=== PATIENT | female | born 1990 | race Caucasian/White ===

== ENCOUNTER 2018-07-16 08:52 | Emergency (ER) | payer MEDICAID ==
[~2018-07-16] VITALS: Ht 167.6 cm; Wt 50.0 kg
[2018-07-16] MEDS ORDERED: NAPR-56 PO (10:06)
[2018-07-16] MEDS ORDERED: ketorolac trometh inj. 60 MG/2 ML VIAL IM ONE (10:10)
[2018-07-16 11:01] VITALS: BP 111/63
== END 2018-07-16 11:05 | disposition home or self-care (01) ==
LOC: ER 08:53
DX: M76.9 Unspecified enthesopathy, lower limb, excluding foot (principal)
CPT/HCPCS: 73502; 96372; 99284; J1885

== ENCOUNTER 2018-11-22 09:46 | Emergency (ER) | payer MEDICAID ==
[~2018-11-22] VITALS: Ht 167.6 cm; Wt 50.5 kg
[2018-11-22 09:54] VITALS: BP 109/58
[2018-11-22] MEDS ORDERED: AZIT250T PO (12:07)
[2018-11-22] MEDS ORDERED: BENZ-16 PO (12:07)
== END 2018-11-22 12:18 | disposition home or self-care (01) ==
LOC: ER 09:47
DX: J06.9 Acute upper respiratory infection, unspecified (principal); F17.200 Nicotine dependence, unspecified, uncomplicated
CPT/HCPCS: 99283

== ENCOUNTER 2018-12-18 11:56 | Emergency (ER) | payer MEDICAID ==
[~2018-12-18] VITALS: Ht 167.6 cm; Wt 53.0 kg
[~2018-12-18 11:56] MED LIST: AZIT250T PO; BENZ-16 PO
[2018-12-18 12:04] VITALS: BP 105/67
[2018-12-18] MEDS ORDERED: ketorolac tromethamine 15mg/ml inj. IM ONE (12:45)
[2018-12-18] MEDS ORDERED: NAPR-56 PO (13:26)
== END 2018-12-18 13:42 | disposition home or self-care (01) ==
LOC: ER 11:57
DX: M25.552 Pain in left hip (principal); G89.29 Other chronic pain; Z98.890 Other specified postprocedural states; Z79.899 Other long term (current) drug therapy
CPT/HCPCS: 73502; 96372; 99284; J1885